=== PATIENT | female | born 1990 | race Caucasian/White ===

== ENCOUNTER 2017-05-22 15:25 | Emergency (ER) | payer MEDICAID ==
--- NOTE | 2017-05-22 15:57 | ED Physician Chart ---
ED Chief Complaint/HPI - Patient Information Date Seen:: 05/22/17 Time Seen:: 14:00 Chief Complaint:: low back pain History of Present Illness:: After lifting her 1-year-old son yesterday patient developed low back pain. Pain radiates to left anterior thigh. No bladder or bowel problems. Patient is currently breast-feeding. Historian:: Patient ED Review of Systems - Review of Systems General/Constitutional: No fever, No chills Skin: No skin lesions Head: No headache Eyes: No loss of vision ENT: No earache Neck: No neck pain Cardio Vascular: Chest pain Pulmonary: No SOB GI: No nausea, No vomiting Musculoskeletal: Bone or joint pain, Back pain, Muscle pain Endocrine: No polyuria Psychiatric: No prior psych history, No depression, No anxiety Hematopoietic: No bruising Allergic/Immuno: No urticaria Neurological: No syncope, No focal symptoms, No weakness ED Past Medical History - Past Medical History Past Medical History: No significant medical hx Family History: Diabetes Melitus Social History: Non Smoker, No Alcohol Surgical History: Psychiatricy History: None Medication: None Family Medical History - Family Member Brother Name:: ULI Age: 59 Ethnicity: Non- Living Status: Still Living Hx Family Cancer: No Hx Family Coronary Artery Disease: No Hx Family Congestive Heart Failure: No Hx Family Hypertension: No Hx Family Stroke: No Hx Family Diabetes: Yes Hx Family Seizures: No Hx Family Dementia: No Hx Family AIDS: No Hx Family HIV: No Hx Family COPD: No Hx Family Hepatitis: No Hx Family Psychiatric Problems: No Hx Family Tuberculosis: No ED Physical Exam - Physical Examination General/Constitutional: Well-developed, well-nourished, Alert, No distress Head: Atraumatic Eyes: Lids, conjuctiva normal, PERRL Skin: Nl inspection, No rash ENMT: External ears, nose nl, TM canals nl, Nasal exam nl, Lips, teeth, gums nl , Oropharynx nl, Tonsils nl Neck: No nuchal rigidity Respiratory: Nl effort/Exclusion, Clear to Auscultation, No Wheeze/Rhonchi/Rales Cardio Vascular: RRR, No murmur, gallop, rubs GI: No tenderness/rebounding/guarding : No CVA tenderness Other Extremities comments:: Straight leg raising is 90 bilaterally; deep tendon reflexes knees and ankles 2 out of 4. Neuro/Psych: Alert/oriented, No focal deficits Other Misc comments:: Point tenderness first sacral vertebrae and left sacroiliac joint. ED Assessment - Assessment General Assessment: At 1621 patient feels better. I suggested Tylenol for the pain since she is breast-feeding. X-rays not indicated because pain is muscular. ED Septic Shock - . Is Septic Shock (SBP<90, OR Lactate>4 mmol\L) present?: No ED Reassessment (Disposition) - Reassessment Reassessment Condition:: Improved - Diagnosis Diagnosis:: Low back strain - Aftercare/Follow up Instructions Aftercare/Follow-Up Instructions:: Refer to Discharge Instructions - Patient Disposition Discharge/Transfer:: Home Condition at Disposition:: Stable, Improved
== END 2017-05-22 16:30 | disposition home or self-care (01) ==
LOC: ER 15:25
DX: M54.5 Low back pain (principal)
CPT/HCPCS: 99283; 96372; J1885; Z7502

== ENCOUNTER 2017-07-14 17:25 | Emergency (ER) | payer MEDICAID ==
--- NOTE | 2017-07-14 20:13 | ER Physician Documentation ---
DATE OF SERVICE: 07/14/2017 The patient is 27-year-old female patient. Full code patient. The patient is 27-year-old male patient who complains of pain in the lower lumbar area, one particular spot on the right side of the spine and around the sciatic area in the back on the right side, that is the area that is hurting for the past 2 months. The patient was given some shot injection in the past 2 months ago. The patient does not want to see his own doctor. She says she has no doctors. She wants the shot and the patient otherwise has no significant complaints. PAST MEDICAL HISTORY: Essentially benign and negative. HISTORY OF PRESENT ILLNESS: Essentially benign and negative. ALLERGIES: No allergies. REVIEW OF SYSTEMS: Essentially benign and negative. The 12-point review of systems was reviewed. The patient is , has 2 children. Constitutional symptoms, no fever, no chills, no things. She says when she lifts weight she gets pain and the patient was advised not to lift any weight more than 5 pounds at a time and not to take any pills unless to see his own doctor. Occasional Tylenol taken. She is okay. The son already looks like to be about a 1-year-old, still she is and not seeing the doctor, advised her to see the doctor. Review of systems essentially all the review of systems; cardiac valadez, patient has no history of myocardial infarction, rheumatic fever, valvular heart disease, or pericardial disease. Pulmonary: No history of pneumonia, TB, pulmonary embolism, COPD, emphysema, bronchitis. Bones and joints: No apparent complaints except for the ones that she complained. Genitourinary: No burning, frequency, dysuria. She says when she lifts the child she gets the pain. Pulmonary: No pneumonia or TB. She does not smoke or drink. The patient is an [place] patient. She does not take any drugs. The patient has no other complaints. No thyroid complaints. No endocrine complaints. No other significant complaints that the patient has. Review of systems otherwise negative. PHYSICAL EXAMINATION: GENERAL: The patient appears to be awake, alert, oriented, not in any acute cardiorespiratory distress. HEENT: Conjunctivae pink. Sclerae white. HEENT: is normal. VITAL SIGNS: Temperature is 98.1, pulse is 79, respirations 17, blood pressure 132/74, height is 162, weight is 175 pounds. Last menstrual period . The patient came from home. Primary MD, she does not say. She has a done. MEDICATIONS: None taken. Drinking, smoking, drugs, etc. benign and negative. Straight leg raising test is negative. The patient has localized tenderness over the sciatic nerve area, and mild pain along the lateral part of the upper lumbar area, maybe about a centimeter area, but the patient is doing everything; walking, lifting the child and doing everything, nothing acutely seen. IMPRESSION: The patient has localized pain somewhere around the sciatic area and pain around the lumbar area, right lumbar muscular area. No evidence of any fracture. No evidence of any injury. The patient has pain for past more than 2 months' duration. The patient was advised to see her own doctor. Use Tylenol, use some , etc. Try not to lift any heavy weight as possible. FINAL IMPRESSION: 1. Back pain. No acute pathology is detected except for minor pain, aches, otherwise negative. ASLR is negative. The patient had . 2. The patient was advised all the instructions. The patient's understands and accepts. The patient's also understood what I am trying to tell her. JOB# [id number]
== END 2017-07-14 19:44 | disposition home or self-care (01) ==
LOC: ER 17:25
DX: M54.5 Low back pain (principal)
CPT/HCPCS: Z7502